=== PATIENT | male | born 1935 | race Caucasian/White ===

== ENCOUNTER → 2018-02-12 | Outpatient (CLI) | payer MEDICARE ==
[~2018-02-12] MED LIST: AMLO10 PO; ASPI325 PO; FAMO20; Garlic X400 MG; OSTERA TABLET1 EACH; PANT20; PROBIOTIC1 EAC1; RANI150
== END | disposition home or self-care (01) ==
LOC: LAB SHORT 14:50 → PLD 14:50
DX: D48.5 Neoplasm of uncertain behavior of skin (principal)
CPT/HCPCS: 88305

== ENCOUNTER → 2021-05-23 | Outpatient (CLI) | payer MEDICARE | LOC: LAB SHORT 12:30 → LAB 12:30 | DX: D48.5 Neoplasm of uncertain behavior of skin (principal); D04.22 Carcinoma in situ of skin of left ear and external auricular canal | CPT/HCPCS: 88305 ==

== ENCOUNTER → 2021-09-15 | Outpatient (CLI) | payer MEDICARE, SELFPAY | END | disposition home or self-care (01) | LOC: LAB SHORT 15:45 | DX: S01.302D Unspecified open wound of left ear, subsequent encounter (principal) | CPT/HCPCS: 87070; 87205 ==

== ENCOUNTER → 2023-01-01 | Outpatient (CLI) | payer MEDICARE ==
[2023-01-01 18:00] LABS: Hematocrit 42.4 % (37.0-53.0); Hemoglobin 14.3 g/dL (13.5-17.5); Mean Corpuscular HGB 29.1 pg (26.0-34.0); Mean Corpuscular HGB Conc 33.7 g/dL (31.5-36.5); Mean Corpuscular Volume 86 fL (80-100); Mean Platelet Volume 10.2 fL (9.1-12.4); Platelet Count 336 K/mm3 (150-400); RDW Coefficient Variation 14.4 % (11.7-14.2); RDW Standard Deviation 45.9 fL (35.1-46.3); Red Blood Cell Count 4.92 M/mm3 (4.30-5.90); White Blood Cell Count 5.99 K/mm3 (4.00-11.30)
[2023-01-01 20:08] LABS: Anion Gap 8 mmol/L (6-16); Blood Urea Nitrogen 13 mg/dL (8-24); Bun/Creatinine Ratio 19.4 (12.0-20.0); CO2, Blood 23 mmol/L (21-32); Calcium, Blood 9.3 mg/dL (8.5-10.1); Chloride, Blood 108 mmol/L (98-108); Creatinine, Blood 0.67 mg/dL (0.60-1.20); Glomerular Filtration Rate 89 (60-); Glucose, Blood 87 mg/dL (70-99); PSA, %Free 14.4 %; PSA, Free 0.034 ng/mL; Prostate Specific Antigen 0.236 ng/mL (0.000-4.000); Sodium, Blood 139 mmol/L (136-145)
== END ==
LOC: LAB 13:30 → LAB SHORT 13:30
PROVIDERS: Nurse Practitioner Family
DX: I10 Essential (primary) hypertension (principal); N40.0 Benign prostatic hyperplasia without lower urinary tract symptoms
CPT/HCPCS: 80048; 84153; 84154; 85027